=== PATIENT | female | born 1945 ===

== ENCOUNTER 2019-06-20 08:04 | Outpatient (REF) | payer MEDICARE, BC, SELFPAY ==
[2019-06-20 21:18] LABS: Calculated LDL 158 mg/dL; Cholesterol 243 mg/dL (50-200); HDL Cholesterol 64 mg/dL (40-60); Triglyceride 108 mg/dL (30-150)
[2019-06-21 15:14] LABS: Anion Gap 9.9 mmol/L (3-11); BUN 21 mg/dL (7-18); CO2 26.1 mmol/L (21.0-32.0); Calcium 9.2 mg/dL (8.5-10.1); Chloride 106 mmol/L (98-107); Glucose 92 mg/dL (70-100); Potassium 4.5 mmol/L (3.5-5.1); Sodium 142 mmol/L (136-145)
== END 2019-06-20 08:24 ==
LOC: NCHCN 08:04
PROVIDERS: PCP Internal Medicine; Visit Provider Internal Medicine
DX: Z13.6 Encounter for screening for cardiovascular disorders (principal); R69 Illness, unspecified
CPT/HCPCS: 80048; 80061; 83721

== ENCOUNTER 2019-08-09 17:31 | Outpatient (REF) | payer MEDICARE, BC, SELFPAY ==
[2019-08-09 21:59] LABS: Abs Immature Grans 0.01 k/cumm (0.0-0.09); Absolute Basophil Count 0.04 k/cumm (0.0-0.2); Absolute Eosinophil Count 0.18 k/cumm (0.0-0.7); Absolute Lymphocyte Count 1.28 k/cumm (1.2-3.4); Absolute Monocyte Count 0.59 k/cumm (0.11-0.7); Absolute Neutrophil Count 4.45 k/cumm (1.2-6.7); Basophils % 0.6; Eosinophils % 2.7; HCT 37.3 % (36.0-46.0); Immature Grans % 0.2; Lymphocytes % 19.5; Mean Corp. HGB Concentration 32.2 g/dL (32.0-36.0); Mean Corpuscular Hemoglobin 31.2 pg (27.0-33.0); Mean Corpuscular Volume 96.9 fL (80-95); Mean Platelet Volume 10.4 fL (8.0-11.0); Platelet Count 280 x1000/uL (130-400); RBC 3.85 m/cumm (4.00-5.20); RBC Distribution Width 13.3 % (11.7-14.6); White Blood Cell Count 6.55 k/cumm (4.4-10.8)
[2019-08-09 22:20] LABS: ALT 28 U/L (14-59); AST 23 U/L (15-37); Albumin 3.8 g/dL (3.4-5.0); Alkaline Phosphatase 55 U/L (46-116); Anion Gap 8.8 mmol/L (3-11); BUN 22 mg/dL (7-18); Bilirubin, Total 0.3 mg/dL (0.2-1.0); CO2 26.2 mmol/L (21.0-32.0); CREATININE 0.88 mg/dL (0.55-1.02); Calcium 8.9 mg/dL (8.5-10.1); Chloride 105 mmol/L (98-107); Glucose 86 mg/dL (70-100); Potassium 4.4 mmol/L (3.5-5.1); Sodium 140 mmol/L (136-145); Total Protein 7.4 g/dL (6.4-8.2)
[2019-08-09 22:41] LABS: ESR 31 mm/hr (0-30)
== END 2019-08-09 17:51 ==
LOC: NCHCN 17:31
PROVIDERS: PCP Family Medicine; Visit Provider Family Medicine
DX: R59.0 Localized enlarged lymph nodes (principal); R10.13 Epigastric pain; Z85.71 Personal history of Hodgkin lymphoma
CPT/HCPCS: 80053; 85652; 85025

== ENCOUNTER 2019-12-06 15:16 | Outpatient (REF) | payer MEDICARE, BC, SELFPAY ==
[2019-12-06 22:24] LABS: Abs Immature Grans 0.02 k/cumm (0.0-0.09); Absolute Basophil Count 0.04 k/cumm (0.0-0.2); Absolute Eosinophil Count 0.22 k/cumm (0.0-0.7); Absolute Lymphocyte Count 1.32 k/cumm (1.2-3.4); Absolute Monocyte Count 0.63 k/cumm (0.11-0.7); Absolute Neutrophil Count 4.76 k/cumm (1.2-6.7); Basophils % 0.6; Eosinophils % 3.1; HCT 36.8 % (36.0-46.0); HGB 12.1 g/dL (12.0-15.5); Immature Grans % 0.3 %; Lymphocytes % 18.9; Mean Corp. HGB Concentration 32.9 g/dL (32.0-36.0); Mean Corpuscular Hemoglobin 31.4 pg (27.0-33.0); Mean Corpuscular Volume 95.6 fL (80-95); Mean Platelet Volume 10.1 fL (8.0-11.0); Neutrophils % 68.1; Platelet Count 289 x1000/uL (130-400); RBC 3.85 m/cumm (4.00-5.20); RBC Distribution Width 13.3 % (11.7-14.6); White Blood Cell Count 6.99 k/cumm (4.4-10.8)
[2019-12-06 23:05] LABS: Vitamin B12 338 pg/mL (193-986)
== END 2019-12-06 15:36 ==
LOC: NCHCN 15:16
PROVIDERS: PCP Family Medicine; Visit Provider Family Medicine
DX: D75.89 Other specified diseases of blood and blood-forming organs (principal)
CPT/HCPCS: 82607; 85025

== ENCOUNTER 2020-02-28 13:44 | Outpatient (REF) | payer MEDICARE, BC, SELFPAY ==
[2020-02-28 20:46] LABS: HCT 38.9 % (36.0-46.0); HGB 12.6 g/dL (12.0-15.5); Mean Corp. HGB Concentration 32.4 g/dL (32.0-36.0); Mean Corpuscular Hemoglobin 31.1 pg (27.0-33.0); Mean Platelet Volume 10.8 fL (8.0-11.0); Platelet Count 261 x1000/uL (130-400); RBC 4.05 m/cumm (4.00-5.20); RBC Distribution Width 13.8 % (11.7-14.6); White Blood Cell Count 6.38 k/cumm (4.4-10.8)
[2020-02-28 21:26] LABS: Folate 15.6 ng/mL (8.6-20.0); Vitamin B12 1063 pg/mL (193-986)
== END 2020-02-28 14:04 ==
LOC: NCHCN 13:44
PROVIDERS: PCP Family Medicine; Visit Provider Family Medicine
DX: E53.8 Deficiency of other specified B group vitamins (principal); D75.89 Other specified diseases of blood and blood-forming organs
CPT/HCPCS: 85027; 82607; 82746

== ENCOUNTER 2020-06-27 19:05 | Outpatient (REF) | payer MEDICARE, BC, SELFPAY ==
[2020-06-27 20:34] LABS: HCT 37.6 % (36.0-46.0); HGB 11.9 g/dL (11.2-15.7); MCH 31.1 pg (27.0-33.0); MCHC 31.6 % (32.0-36.0); MCV 98.2 fL (80-95); MPV 11.1 fL (8.0-11.0); Platelet Count 227 10^3/uL (130-400); RBC 3.83 10^6/uL (3.93-5.22); RDW 13.9 % (11.7-14.6); RDW-SD 50.4 fL; WBC 7.15 10^3/uL (4.4-10.8)
[2020-06-27 21:13] LABS: Vitamin B12 1071 pg/mL (193-986)
== END 2020-06-27 19:25 ==
LOC: NCHCN 19:05
PROVIDERS: PCP Family Medicine; Visit Provider Family Medicine
DX: E53.8 Deficiency of other specified B group vitamins (principal); D75.89 Other specified diseases of blood and blood-forming organs
CPT/HCPCS: 85027; 82607

== ENCOUNTER 2020-10-31 16:31 | Outpatient (REF) | payer MEDICARE, BC, SELFPAY | END 2020-10-31 16:51 | LOC: NCHCN 16:31 | PROVIDERS: PCP Family Medicine; Visit Provider Family Medicine | DX: R39.15 Urgency of urination (principal) | CPT/HCPCS: 87077; 87086; 87186 ==

== ENCOUNTER 2022-04-04 00:26 | Outpatient (REF) | payer MEDICARE, BC, SELFPAY ==
[2022-04-03 20:35] LABS: HCT 39.4 % (36.0-46.0); MCH 31.6 pg (27.0-33.0); MCV 96 fL (80-95); MPV 10.2 fL (8.0-11.0); Platelet Count 265 10^3/uL (130-400); RBC 4.12 10^6/uL (3.93-5.22); RDW 13.5 % (11.7-14.6); RDW-SD 48.3 fL; WBC 6.25 10^3/uL (4.4-10.8)
[2022-04-03 21:13] LABS: ALT 29 U/L (14-59); AST 16 U/L (15-37); Albumin 4.1 g/dL (3.4-5.0); Alkaline Phosphatase 59 U/L (46-116); Anion Gap 10.9 mmol/L (3-11); BUN 27 mg/dL (7-18); Bilirubin, Total 0.5 mg/dL (0.2-1.0); CO2 26.1 mmol/L (21.0-32.0); CREATININE 0.8 mg/dL (0.55-1.02); Calcium 9.1 mg/dL (8.5-10.1); Chloride 104 mmol/L (98-107); Glucose 98 mg/dL (74-106); Potassium 4.4 mmol/L (3.5-5.1); Sodium 141 mmol/L (136-145); Total Protein 7.6 g/dL (6.4-8.2); Vitamin B12 1840 pg/mL (193-986)
== END 2022-04-04 00:27 | disposition home or self-care (01) ==
LOC: NCHCN 00:26
PROVIDERS: PCP Family Medicine; Visit Provider Family Medicine
DX: E53.8 Deficiency of other specified B group vitamins (principal); Z85.71 Personal history of Hodgkin lymphoma
CPT/HCPCS: 80053; 85027; 82607

== ENCOUNTER 2022-04-09 16:29 | Outpatient (REF) | payer MEDICARE, BC, SELFPAY ==
[2022-04-09 21:07] LABS: Abs Immature Grans 0.01 10^3/uL (0.0-0.06); Absolute Basophil Count 0.04 10^3/uL (0.0-0.2); Absolute Eosinophil Count 0.11 10^3/uL (0.0-0.7); Absolute Lymphocyte Count 1.47 10^3/uL (1.2-3.4); Absolute Monocyte Count 0.61 10^3/uL (0.1-0.8); Absolute Neutrophil Count 4.28 10^3/uL (1.2-6.7); Basophils % 0.6; Eosinophils % 1.7; HCT 36.7 % (36.0-46.0); HGB 12.2 g/dL (11.2-15.7); Immature Grans % 0.2; Lymphocytes % 22.5; MCH 31.8 pg (27.0-33.0); MCHC 33.2 % (32.0-36.0); MCV 96 fL (80-95); MPV 10.1 fL (8.0-11.0); Monocytes % 9.4; Neutrophils % 65.6; Platelet Count 250 10^3/uL (130-400); RBC 3.84 10^6/uL (3.93-5.22); RDW 13.7 % (11.7-14.6); RDW-SD 48.1 fL; WBC 6.52 10^3/uL (4.4-10.8)
== END 2022-04-09 16:30 | disposition home or self-care (01) ==
LOC: NCHCN 16:29
PROVIDERS: PCP Family Medicine; Visit Provider Family Medicine
DX: E53.8 Deficiency of other specified B group vitamins (principal); Z85.71 Personal history of Hodgkin lymphoma
CPT/HCPCS: 85025

== ENCOUNTER 2024-04-26 11:44 | Outpatient (REF) | payer MEDICARE, BC, SELFPAY ==
[2024-04-26 14:29] LABS: Abs Immature Grans 0.01 10^3/uL (0.0-0.06); Absolute Basophil Count 0.06 10^3/uL (0.0-0.2); Absolute Eosinophil Count 0.12 10^3/uL (0.0-0.7); Absolute Lymphocyte Count 1.63 10^3/uL (1.2-3.4); Absolute Monocyte Count 0.86 10^3/uL (0.1-0.8); Absolute Neutrophil Count 4.97 10^3/uL (1.2-6.7); Basophils % 0.8 %; Eosinophils % 1.6 %; HCT 37.5 % (36.0-46.0); HGB 12.4 g/dL (11.2-15.7); Immature Grans % 0.1 %; Lymphocytes % 21.3 %; MCH 31.3 pg (27.0-33.0); MCHC 33.1 % (32.0-36.0); MCV 95 fL (80-95); MPV 10.5 fL (8.0-11.0); Monocytes % 11.2 %; Platelet Count 309 10^3/uL (130-400); RBC 3.96 10^6/uL (3.93-5.22); RDW 13.7 % (11.7-14.6); RDW-SD 48.1 fL; WBC 7.65 10^3/uL (4.4-10.8)
[2024-04-26 15:00] LABS: ALT 47 U/L (14-59); AST 39 U/L (15-37); Albumin 3.5 g/dL (3.4-5.0); Alkaline Phosphatase 82 U/L (46-116); Anion Gap 7.5 mmol/L (3-11); BUN 17 mg/dL (7-18); Bilirubin, Total 0.29 mg/dL (0.2-1.0); CO2 27.5 mmol/L (21.0-32.0); CREATININE 0.8 mg/dL (0.55-1.02); Calcium 9.3 mg/dL (8.5-10.1); Chloride 104 mmol/L (98-107); Estimated GFR 76.31 (mL/min/1.73m2); Glucose 99 mg/dL (74-106); Potassium 4.3 mmol/L (3.5-5.1); Sodium 139 mmol/L (136-145); TSH (W/Ref FT4) 3.07 uIU/mL (0.36-3.74); Total Protein 8.1 g/dL (6.4-8.2); Vitamin D 25 Total 17.7 ng/mL (30-100)
== END 2024-04-26 11:45 | disposition home or self-care (01) ==
LOC: NCHCN 11:44
PROVIDERS: PCP Family Medicine; Visit Provider Family Medicine
DX: R53.83 Other fatigue (principal); E55.9 Vitamin D deficiency, unspecified; E66.3 Overweight
CPT/HCPCS: 80053; 82306; 84443; 85025

== ENCOUNTER 2024-08-02 16:39 | Outpatient (REF) | payer MEDICARE, BC, SELFPAY ==
[2024-08-02 21:45] LABS: Vitamin D 25 Total 37.1 ng/mL (30-100)
== END 2024-08-02 16:40 | disposition home or self-care (01) ==
LOC: NCHCN 16:39
PROVIDERS: PCP Family Medicine; Visit Provider Family Medicine
DX: E55.9 Vitamin D deficiency, unspecified (principal)
CPT/HCPCS: 82306

== ENCOUNTER 2024-12-26 08:59 | Outpatient (REF) | payer MEDICARE, BC, SELFPAY ==
[2024-12-26 14:34] LABS: HCT 40.4 % (36.0-46.0); MCH 30.9 pg (27.0-33.0); MCHC 32.2 % (32.0-36.0); MCV 96 fL (80-95); Platelet Count 296 10^3/uL (130-400); RBC 4.21 10^6/uL (3.93-5.22); RDW 13.5 % (11.7-14.6); RDW-SD 48.4 fL; WBC 4.06 10^3/uL (4.4-10.8)
[2024-12-26 15:18] LABS: ALT 19 U/L (14-59); AST 22 U/L (15-37); Albumin 3.4 g/dL (3.4-5.0); Alkaline Phosphatase 64 U/L (46-116); Anion Gap 6.3 mmol/L (3-11); BUN 23 mg/dL (7-18); Bilirubin, Total 0.35 mg/dL (0.2-1.0); CO2 28.7 mmol/L (21.0-32.0); Calcium 9.3 mg/dL (8.5-10.1); Calculated LDL 118 mg/dL (<100); Chloride 106 mmol/L (98-107); Cholesterol 207 mg/dL (<200); Estimated GFR 58.02 (mL/min/1.73m2); Glucose 95 mg/dL (74-106); HDL Cholesterol 75 mg/dL (40-60); Potassium 4.7 mmol/L (3.5-5.1); Sodium 141 mmol/L (136-145); TSH 3.69 uIU/mL (0.36-3.74); Total Protein 7.9 g/dL (6.4-8.2); Triglyceride 73 mg/dL (<150); Vitamin B12 921 pg/mL (193-986); Vitamin D 25 Total 30.3 ng/mL (30-100)
== END 2024-12-26 09:00 | disposition home or self-care (01) ==
LOC: NCHCN 08:59
PROVIDERS: PCP Family Medicine; Visit Provider Family Medicine
DX: G45.9 Transient cerebral ischemic attack, unspecified (principal); M62.81 Muscle weakness (generalized); E53.9 Vitamin B deficiency, unspecified
CPT/HCPCS: 80053; 80061; 82306; 85027; 82607; 84443